=== PATIENT | male | born 1960 | race Caucasian/White ===

== ENCOUNTER 2018-10-14 18:40 | Inpatient (IN) | payer OTHER ==
[~2018-10-14] VITALS: Ht 182.9 cm; Wt 144.2 kg
--- NOTE | 2018-10-14 19:18 | NUR ---
DR. JOHNSON IN TO EVAL PT. AND DISCUSS POC WITH PT. AND FAMILY.
--- NOTE | 2018-10-14 19:46 | NUR ---
MRI SCREENING FORM COMPLETED AND FAXED TO [id number].
--- NOTE | 2018-10-14 20:00 | NUR ---
PT. TO MRI VIA [facility] AT THIS TIME.
[2018-10-14] MEDS ORDERED: ASPIRIN 325 MG TABLET PO STA (20:37)
[2018-10-14] MEDS ORDERED: CHOL400C11 PO (20:51)
[2018-10-14] MEDS ORDERED: GLIP5TAB10 PO (20:51)
[2018-10-14] MEDS ORDERED: ATOR10TA9 PO (20:51)
[2018-10-14] MEDS ORDERED: ALLO300T PO (20:51)
[2018-10-14] MEDS ORDERED: ASPIRIN 325 MG TABLET ONE (20:53)
--- NOTE | 2018-10-14 20:57 | NUR ---
[facility] IN TO EAL PT. FOR ADMISSION. PT. PASSED SWALLOW EVAL. PT. REPORTS HE ALREADY TOOK AN ASA TODAY AT ABOUT 1500; PER [facility] HOLD THIS MED. OK FOR PT. TO EAT.
--- NOTE | 2018-10-14 21:15 | NUR ---
FIRST ATTEMPT TO CALL REPORT TO FLOOR.
--- NOTE | 2018-10-14 21:23 | NUR ---
REPORT TO [facility]. FLOOR READY FOR PT. TRANSPORT. PT. ATE 100% OF [place] PROVIDED WITHOUT ANY ISSUES.
[2018-10-14] MEDS ORDERED: DOCUSATE 100 MG CAPSULE PO PRN (21:30)
[2018-10-14] MEDS ORDERED: POLYETHYLENE GLYCOL 17 GM PACKET PO PRN (21:30)
[2018-10-14] MEDS ORDERED: ACETAMINOPHEN 650 MG/20.3 ML UDC PO PRN (21:30)
[2018-10-14] MEDS ORDERED: BISACODYL 10 MG SUPP PR PRN (21:30)
[2018-10-14] MEDS ORDERED: ONDANSETRON 4 MG TABLET PO PRN (21:30)
[2018-10-14 21:54] VITALS: BP 141/97
[2018-10-14] MEDS: ATORVASTATIN 40 MG TABLET PO SCH (22:40)
[2018-10-14 22:45] LABS: HEMOGLOBIN A1C 8.2 % (4.2-6.3)
[2018-10-15 01:38] VITALS: BP 137/87
[2018-10-15 06:28] LABS: BASOPHILS # (AUTO) 0.04 x10^3/uL (0-0.1); BASOPHILS % (AUTO) 0 % (0-1); EOSINOPHILS # (AUTO) 0.23 x10^3/uL (0-0.4); EOSINOPHILS % (AUTO) 3 % (1-7); LYMPHOCYTES # (AUTO) 2.19 x10^3/uL (1-3.4); LYMPHOCYTES % (AUTO) 24 % (22-44); MD NO; MEAN CORPUSCULAR HEMOGLOBIN 29.7 pg (27.5-34.5); MEAN CORPUSCULAR HGB CONC 33.7 g/dL (33.2-36.2); MEAN CORPUSCULAR VOLUME 88.3 fL (81-97); MEAN PLATELET VOLUME 8.8 fL (7.4-10.4); MONOCYTES # (AUTO) 0.52 x10^3/uL (0.2-0.8); MONOCYTES % (AUTO) 6 % (2-9); NEUTROPHILS # (AUTO) 6.17 x10^3/uL (1.8-6.8); NEUTROPHILS % (AUTO) 67 % (42-75); PLATELET COUNT 267 x10^3/uL (130-400); RED BLOOD COUNT 4.91 x10^6/uL (4.38-5.82); RED CELL DISTRIBUTION WIDTH 14.8 % (9.4-14.8)
[2018-10-15 06:41] LABS: ALANINE AMINOTRANSFERASE 52 U/L (12-78); ALBUMIN 3.7 g/dL (3.4-5.0); ANION GAP 5 mmol/L (5-15); CALCIUM 8.7 mg/dL (8.5-10.1); CHLORIDE 106 mmol/L (98-107); CREATININE 0.92 mg/dL (0.7-1.3)
[2018-10-15 06:44] LABS: ALKALINE PHOSPHATASE 91 U/L (45-117); BILIRUBIN,TOTAL 0.9 mg/dL (0.2-1.0); CHOL/HDL RATIO 7.8; CHOLESTEROL, TOTAL 194 mg/dL (140-239); HDL CHOL % 13 % (26-37); HDL CHOLESTEROL (DIRECT) 25 mg/dL (40-60); LDL CHOLESTEROL,CALCULATED 125 mg/dL (54-169); TOTAL PROTEIN 7.3 g/dL (6.4-8.2); TRIGLYCERIDES 218 mg/dL (50-200); VLDL CHOLESTEROL 44 mg/dL (0-25)
[2018-10-15 07:42] VITALS: BP 130/82
[2018-10-15] MEDS: INSULIN LISPRO 100 UNITS/ML, PEN SQ-INSULIN SCH ×4 (08:15→21:45)
[2018-10-15] MEDS: ASPIRIN 81 MG TABLET CHEW PO/NG SCH (09:23)
[2018-10-15] MEDS ORDERED: GLIP5TAB10 PO (09:28)
[2018-10-15] MEDS ORDERED: LOSA100T14 PO (09:28)
[2018-10-15 14:03] VITALS: BP 148/90
[2018-10-15 19:19] VITALS: BP 149/87
[2018-10-15] MEDS: ATORVASTATIN 40 MG TABLET PO SCH (21:45)
[2018-10-16 05:10] VITALS: BP 134/88
[2018-10-16 05:33] LABS: BASOPHILS # (AUTO) 0.04 x10^3/uL (0-0.1); BASOPHILS % (AUTO) 1 % (0-1); EOSINOPHILS # (AUTO) 0.25 x10^3/uL (0-0.4); EOSINOPHILS % (AUTO) 3 % (1-7); LYMPHOCYTES # (AUTO) 2.89 x10^3/uL (1-3.4); LYMPHOCYTES % (AUTO) 34 % (22-44); MD NO; MEAN CORPUSCULAR HEMOGLOBIN 29.6 pg (27.5-34.5); MEAN CORPUSCULAR HGB CONC 33.5 g/dL (33.2-36.2); MEAN CORPUSCULAR VOLUME 88.2 fL (81-97); MEAN PLATELET VOLUME 8.4 fL (7.4-10.4); MONOCYTES # (AUTO) 0.53 x10^3/uL (0.2-0.8); MONOCYTES % (AUTO) 6 % (2-9); NEUTROPHILS # (AUTO) 4.78 x10^3/uL (1.8-6.8); NEUTROPHILS % (AUTO) 56 % (42-75); PLATELET COUNT 245 x10^3/uL (130-400); RED BLOOD COUNT 4.98 x10^6/uL (4.38-5.82)
[2018-10-16 05:40] LABS: ALANINE AMINOTRANSFERASE 45 U/L (12-78); ALBUMIN 3.7 g/dL (3.4-5.0); ANION GAP 6 mmol/L (5-15); CALCIUM 8.8 mg/dL (8.5-10.1); CHLORIDE 106 mmol/L (98-107)
[2018-10-16 05:43] LABS: ALKALINE PHOSPHATASE 89 U/L (45-117); BILIRUBIN,TOTAL 1.1 mg/dL (0.2-1.0); CREATININE 0.83 mg/dL (0.7-1.3); TOTAL PROTEIN 7.1 g/dL (6.4-8.2)
[2018-10-16 08:49] VITALS: BP 136/88
[2018-10-16] MEDS: INSULIN LISPRO 100 UNITS/ML, PEN SQ-INSULIN SCH ×3 (08:55→18:04)
[2018-10-16] MEDS ORDERED: ALLOPURINOL 100 MG TABLET PO SCH (09:00)
[2018-10-16] MEDS ORDERED: LOSARTAN 50MG TABLET PO SCH (09:00)
[2018-10-16] MEDS: ASPIRIN 81 MG TABLET CHEW PO/NG SCH (09:17)
[2018-10-16] MEDS ORDERED: CLOPIDOGREL 75 MG TABLET PO SCH (13:00)
[2018-10-16 14:45] VITALS: BP 115/82
[2018-10-16] MEDS ORDERED: ASPI-515 PO/NG (17:06)
[2018-10-16] MEDS ORDERED: ATOR40TA78 PO (17:06)
[2018-10-16] MEDS ORDERED: CLOP75TA PO (17:06)
== END 2018-10-17 05:19 | disposition home or self-care (01) | DRG 65 ==
LOC: ED 20:30 → EDIP 20:43 → 4EST 22:15
PROVIDERS: ADMIT Internal Medicine; ATTEND Internal Medicine
DX: I63.9 Cerebral infarction, unspecified (principal); Q21.1 Atrial septal defect; Z68.41 Body mass index [BMI] 40.0-44.9, adult; E11.9 Type 2 diabetes mellitus without complications; E66.01 Morbid (severe) obesity due to excess calories; E78.5 Hyperlipidemia, unspecified; I10 Essential (primary) hypertension; I36.1 Nonrheumatic tricuspid (valve) insufficiency; M10.9 Gout, unspecified; Z79.02 Long term (current) use of antithrombotics/antiplatelets; Z79.82 Long term (current) use of aspirin; Z79.899 Other long term (current) drug therapy; Z80.0 Family history of malignant neoplasm of digestive organs; Z82.3 Family history of stroke; Z83.3 Family history of diabetes mellitus; Z87.891 Personal history of nicotine dependence; Z88.8 Allergy status to other drugs, medicaments and biological substances
CPT/HCPCS: 36415; 70551; 80053; 80061; 82962; 83036; 83735; 84100; 85025; 93005; 93306; 93880; 99285; G0378; J1815